=== PATIENT | female | born 1960 | race Caucasian/White ===

== ENCOUNTER → 2021-12-08 | Outpatient (CLI) | payer OTHER | END | disposition home or self-care (01) | LOC: SHCH 07:50 | PROVIDERS: ATTEND Internal Medicine Cardiovascular Disease | DX: I25.10 Atherosclerotic heart disease of native coronary artery without angina pectoris (principal) | CPT/HCPCS: 93306 ==

== ENCOUNTER → 2024-02-10 | Outpatient (CLI) | payer OTHER | END | disposition home or self-care (01) | LOC: RAH 08:47 | PROVIDERS: ATTEND Internal Medicine Cardiovascular Disease | DX: I25.10 Atherosclerotic heart disease of native coronary artery without angina pectoris (principal); R07.9 Chest pain, unspecified; M47.815 Spondylosis without myelopathy or radiculopathy, thoracolumbar region | CPT/HCPCS: 75574 ==

== ENCOUNTER 2024-03-20 05:54 | Day surgery (SDC) | payer OTHER ==
[2024-03-18 11:57] VITALS: BP 140/80; PULSE 74; RESP 17; TEMP 98
[2024-03-18 12:00] LABS: BASOPHILS # (AUTO) 0.06 K/uL (0.00-0.20); BASOPHILS % (AUTO) 0.6 % (0.0-5.0); EOSINOPHILS # (AUTO) 0.21 K/uL (0.00-0.70); EOSINOPHILS % (AUTO) 2.1 % (0.0-8.0); HEMATOCRIT 42.6 % (36-48); IMMATURE GRANULOCYTE ABSOLUTE 0.03 K/uL (0-1); LYMPHOCYTES # (AUTO) 2.4 K/uL (1.0-4.8); LYMPHOCYTES % (AUTO) 23.3 % (21.0-51.0); MEAN CORPUSCULAR HEMOGLOBIN 30.1 pg (27.0-33.0); MEAN CORPUSCULAR HGB CONC 32.6 g/dL (32.0-36.0); MEAN CORPUSCULAR VOLUME 92.2 fL (79-99); MONOCYTES # (AUTO) 0.9 K/uL (0.1-1.0); MONOCYTES % (AUTO) 8.9 % (3.0-13.0); NEUTROPHILS # (AUTO) 6.5 K/uL (1.8-7.7); NEUTROPHILS % (AUTO) 64.8 % (40.0-77.0); PLATELET COUNT (AUTO) 242 K/uL (130-400); RED BLOOD CELL COUNT(AUTO) 4.62 MIL/uL (4.00-5.50); WHITE BLOOD COUNT (AUTO) 10.1 K/uL (4.8-10.8)
[2024-03-18 12:07] LABS: CREATININE 1.1 mg/dL (0.5-1.0); POTASSIUM 4.3 mmol/L (3.5-5.1)
[2024-03-18 12:12] LABS: INR 1.21 (0.85-1.15); PROTHROMBIN TIME 12.9 SEC (9.6-11.6)
[2024-03-18 12:14] LABS: PARTIAL THROMBOPLASTIN TIME 32.3 SEC (26.3-35.5)
[2024-03-18 12:28] LABS: B-TYPE NATRIURETIC PEPTIDE 31 pg/mL (0-100)
[~2024-03-20] VITALS: Ht 170.2 cm; Wt 115.0 kg
[2024-03-20] VITALS (9 sets, daily range): BP systolic 101–135; BP diastolic 52–77; PULSE 58–70; RESP 10–17; TEMP 97.6–98.3
[~2024-03-20 05:54] MED LIST: AEC81 PO; GABA300C PO; ISOS60TA77 PO; LOSA25TA41 PO; METO-391 PO; RIVA2.5T PO; ROSU20TA73 PO; SEMA14TA2 PO
[2024-03-20] MEDS: 0.9%NACL 1000ML 1,000 ML IV ONE (06:41)
[2024-03-20] MEDS ORDERED: LIDOCAINE HCL 400MG/20ML VIAL ONE (07:10)
[2024-03-20] MEDS ORDERED: IOHEXOL 350 MG/ML 100ML INFUS..BTL IV ONE (07:11)
[2024-03-20] MEDS ORDERED: niCARDIpine 25MG INJ IV ONE (07:11)
[2024-03-20] MEDS ORDERED: IOHEXOL-350 50ML VIAL IV ONE (07:11)
[2024-03-20] MEDS ORDERED: HEParin 10,000 UNIT/10ML (1,000 UNIT/ML) VIAL ONE (07:11)
[2024-03-20] MEDS ORDERED: HEParin-NS 1,000 UNIT/500 ML 1,000 ML IV ONE (07:11)
[2024-03-20] MEDS ORDERED: NITROGLYCERIN 50MG VIAL ONE (07:12)
[2024-03-20] MEDS ORDERED: FENTanyl CITRate PF 50 MCG/1 ML 2ML VIAL ONE (07:30)
[2024-03-20] MEDS ORDERED: MIDAZOLAM HCL 1 MG/ML 2ML VIAL ONE ×2 (07:30→08:20)
[2024-03-20] MEDS ORDERED: BIVALIRUDIN 250 MG/VIAL IV ONE (07:36)
[2024-03-20] MEDS ORDERED: ATROPINE 1MG SYG IVP ONE (08:17)
[2024-03-20] MEDS ORDERED: DEXTROSE 50%-WATER 50 ML DISP.SYRIN IV PRN (09:00)
[2024-03-20] MEDS ORDERED: GLUCAGON 1MG KIT 1 MG ML IM PRN (09:00)
[2024-03-20] MEDS: 0.9%NACL 1000ML 1,000 ML IV SCH (09:25)
== END 2024-03-20 12:25 | disposition home or self-care (01) ==
LOC: DAH 05:54
PROVIDERS: ATTEND Internal Medicine Cardiovascular Disease
DX: I25.118 Atherosclerotic heart disease of native coronary artery with other forms of angina pectoris (principal); T82.855A Stenosis of coronary artery stent, initial encounter; R93.1 Abnormal findings on diagnostic imaging of heart and coronary circulation; I10 Essential (primary) hypertension; E78.5 Hyperlipidemia, unspecified; G47.33 Obstructive sleep apnea (adult) (pediatric); I87.2 Venous insufficiency (chronic) (peripheral); U09.9 Post COVID-19 condition, unspecified; Z79.01 Long term (current) use of anticoagulants; Z99.89 Dependence on other enabling machines and devices; Z95.5 Presence of coronary angioplasty implant and graft; Z79.899 Other long term (current) drug therapy; Y82.8 Other medical devices associated with adverse incidents
CPT/HCPCS: 80048; 83880; 85025; 85610; 85730; 36415; 71045; 93005; 93458; 82948 ×2; C1769; C1894; A4649; Q9965 ×2; J3010; J3490 ×3; J7030; J1644 ×2; J2250 ×2; Q9967; A4215; A4335; A4222; A6260; A4221; A4663; A4216; A6206; A4606; A4223 ×3; A4554; 96360; 96361; 99156; 99157; J0461; J0583

== ENCOUNTER 2024-03-29 14:15 | Emergency (ER) | payer OTHER ==
[~2024-03-29] VITALS: Ht 170.2 cm; Wt 117.9 kg
[~2024-03-29 14:15] MED LIST changes: -ISOS60TA77 PO; +LEVO250T75 PO; -LOSA25TA41 PO; -METO-391 PO; +METO25 PO; -RIVA2.5T PO
[2024-03-29 15:43] VITALS: BP 112/61; PULSE 72; RESP 16; TEMP 98.2; O2SAT 99
== END 2024-03-29 15:49 | disposition home or self-care (01) ==
LOC: EDH 14:15
DX: T44.7X1A Poisoning by beta-adrenoreceptor antagonists, accidental (unintentional), initial encounter (principal); E78.00 Pure hypercholesterolemia, unspecified; I10 Essential (primary) hypertension; I25.10 Atherosclerotic heart disease of native coronary artery without angina pectoris; Z79.82 Long term (current) use of aspirin; Z79.899 Other long term (current) drug therapy; Z88.8 Allergy status to other drugs, medicaments and biological substances; Z98.890 Other specified postprocedural states; Y92.89 Other specified places as the place of occurrence of the external cause
CPT/HCPCS: 99282